=== PATIENT | female | born 1990 | race Caucasian/White ===

== ENCOUNTER 2021-05-29 09:08 | Outpatient (CLI) | payer BC | END 2021-05-29 21:10 | disposition home or self-care (01) | LOC: SRD 09:08 | PROVIDERS: ATTEND Specialist | DX: N92.6 Irregular menstruation, unspecified (principal); N80.9 Endometriosis, unspecified; N83.201 Unspecified ovarian cyst, right side | CPT/HCPCS: 58340; 74740; C1751; Q9967 ==